=== PATIENT | male | born 2000 | race Asian ===

== ENCOUNTER → 2022-05-13 14:10 | Outpatient (CLI) | payer OTHER, MEDICAID, SELFPAY ==
[2022-05-13 19:32] LABS: BUN Creatinine Ratio 13.8 (6-22); Blood Urea Nitrogen 12 mg/dL (9-20); Calcium 9.1 mg/dL (8.4-10.2); Carbon Dioxide 26 mmol/L (22-32); Chloride 104 mmol/L (98-107); Estimated Glomerular Filt Rate > 60 mL/min (>60); Glucose 119 mg/dL (70-100); HEMOLYSIS < 15 (0-50); Potassium 3.6 mmol/L (3.4-5.1); Sodium 140 mmol/L (137-145)
[2022-05-13 20:06] LABS: Testosterone 386 ng/dL (132-813)
[2022-05-16 23:25] LABS: Estradiol, Sensitive 46.5 pg/mL (8.0-35.0)
== END ==
PROVIDERS: PCP Physician Assistant Medical; Visit Provider Physician Assistant
DX: F64.9 Gender identity disorder, unspecified (principal)
CPT/HCPCS: 80048; 82670; 84403

== ENCOUNTER → 2022-08-07 18:05 | Outpatient (CLI) | payer OTHER, MEDICAID, SELFPAY | PROVIDERS: PCP Physician Assistant; Visit Provider Physician Assistant Medical | DX: M25.50 Pain in unspecified joint (principal); R53.83 Other fatigue | CPT/HCPCS: 82948 ==

== ENCOUNTER → 2022-08-21 12:59 | Outpatient (CLI) | payer OTHER, MEDICAID, SELFPAY ==
[2022-08-21 19:38] LABS: Alanine Aminotransferase 13 IU/L (<35); Albumin 4.2 g/dL (3.5-5.0); Albumin Globulin Ratio 1.5 (1.0-2.8); Alkaline Phosphatase 55 U/L (38-126); Aspartate Aminotransferase 24 IU/L (14-36); BUN Creatinine Ratio 20.5 (6-22); Bilirubin Total 0.3 mg/dL (0.2-1.3); Blood Urea Nitrogen 16 mg/dL (7-17); C-Reactive Protein Quant < 0.5 mg/dL (<1.0); Calcium 8.9 mg/dL (8.4-10.2); Carbon Dioxide 27 mmol/L (22-32); Chloride 103 mmol/L (98-107); Estimated Glomerular Filt Rate > 60 mL/min (>60); Globulin 2.8 g/dL (1.7-4.1); Glucose 87 mg/dL (70-100); HEMOLYSIS < 15 (0-50); Potassium 3.9 mmol/L (3.4-5.1); Sodium 138 mmol/L (137-145)
[2022-08-21 19:49] LABS: Free T3, Triiodothyronine Free 4.69 pg/mL (2.77-5.27)
[2022-08-21 19:52] LABS: Add Manual Diff / Slide Review NO; Basophils Absolute Auto 0 /uL (0-100); Basophils Percent Auto 0.5 % (0-2); Eosinophils Absolute Auto 100 /uL (0-450); Eosinophils Percent Auto 1.8 % (2-4); Hematocrit 36.8 % (36-46); Hemoglobin 12.1 g/dL (12.0-16.0); Lymphocytes Absolute Auto 2700 /uL (1100-4500); Lymphocytes Percent Auto 38.9 % (25-40); Mean Corpuscular Hemoglobin 27.5 PG (26-34); Mean Corpuscular Volume 83.4 fL (80-100); Monocytes Absolute Auto 500 /uL (0-900); Monocytes Percent Auto 7.2 % (3-14); Neutrophils Absolute Auto 3600 /uL (1500-7000); Neutrophils Percent Auto 51.6 % (50-75); Platelet Count 193 X10^3/uL (150-400); Red Blood Cell Count 4.41 X10^6/uL (4.0-5.2); Red Cell Distribution Width 12.9 % (11.6-14.8)
[2022-08-21 20:03] LABS: TSH w/ Reflex to FT4 1.04 uIU/mL (0.47-4.68)
[2022-08-21 20:29] LABS: Erythrocyte Sedimentation Rate 7 MM/HR (0-20)
== END ==
PROVIDERS: PCP Physician Assistant; Visit Provider Physician Assistant Medical
DX: M25.50 Pain in unspecified joint (principal); R53.83 Other fatigue
CPT/HCPCS: 80053; 84443; 84481; 85025; 85651; 86140

== ENCOUNTER → 2022-10-31 14:34 | Outpatient (CLI) | payer OTHER, MEDICAID, SELFPAY ==
[2022-10-31 19:26] LABS: BUN Creatinine Ratio 9.6 (6-22); Blood Urea Nitrogen 10 mg/dL (7-17); Calcium 9.1 mg/dL (8.4-10.2); Carbon Dioxide 23 mmol/L (22-32); Chloride 104 mmol/L (98-107); Estimated Glomerular Filt Rate > 60 mL/min (>60); Glucose 116 mg/dL (70-100); HEMOLYSIS < 15 (0-50); Sodium 138 mmol/L (137-145)
[2022-10-31 19:27] LABS: Potassium 3.9 mmol/L (3.4-5.1)
[2022-10-31 19:56] LABS: Testosterone 362 ng/dL (5.71-77.0)
[2022-11-05 22:22] LABS: ANA Screen, IFA Negative (.); Albumin 3.8 g/dL (2.9-4.4); Alpha 1 Globulin 0.2 g/dL (0.0-0.4); Alpha 2 Globulin 0.7 g/dL (0.4-1.0); Beta 1 Globulin 0.9 g/dL (0.7-1.3); Protein, Total 6.7 g/dL (6.0-8.5)
[2022-11-14 11:17] LABS: Estradiol, Sensitive 55.6
== END ==
PROVIDERS: Family Medicine; PCP Physician Assistant; Visit Provider Nurse Practitioner Family
DX: F64.9 Gender identity disorder, unspecified (principal); Z79.890 Hormone replacement therapy; M25.50 Pain in unspecified joint; M79.10 Myalgia, unspecified site; R53.83 Other fatigue
CPT/HCPCS: 80048; 82670; 84155; 84165; 84403; 86038

== ENCOUNTER → 2022-12-04 14:30 | Outpatient (CLI) | payer OTHER, MEDICAID, SELFPAY ==
[2022-12-04 19:36] LABS: BUN Creatinine Ratio 12.3 (6-22); Blood Urea Nitrogen 10 mg/dL (7-17); Calcium 9.3 mg/dL (8.4-10.2); Carbon Dioxide 28 mmol/L (22-32); Chloride 100 mmol/L (98-107); Estimated Glomerular Filt Rate > 60 mL/min (>60); Glucose 88 mg/dL (70-100); HEMOLYSIS 18 (0-50); Potassium 4.2 mmol/L (3.4-5.1); Sodium 137 mmol/L (137-145)
[2022-12-04 20:04] LABS: Estradiol, Total 30.2 pg/mL
[2022-12-10 07:36] LABS: Percent Free Testosterone 3.55 % (0.50-2.80); Testosterone Free 30.97 ng/dL (0.10-0.85); Testosterone Total 872.4 ng/dL (10.0-55.0)
== END ==
PROVIDERS: PCP Physician Assistant; Visit Provider Family Medicine
DX: Z78.9 Other specified health status (principal); R79.89 Other specified abnormal findings of blood chemistry
CPT/HCPCS: 80048; 82670; 84402; 84403

== ENCOUNTER → 2022-12-26 12:48 | Outpatient (CLI) | payer OTHER, MEDICAID, SELFPAY ==
[2022-12-26 20:16] LABS: C-Reactive Protein Quant < 0.5 mg/dL (<1.0)
[2022-12-26 20:25] LABS: Erythrocyte Sedimentation Rate 11 MM/HR (0-20)
[2022-12-29 17:00] LABS: ANA Screen, IFA Negative (.)
== END ==
PROVIDERS: PCP Physician Assistant; Visit Provider Family Medicine
DX: M79.10 Myalgia, unspecified site (principal); R53.83 Other fatigue; M25.50 Pain in unspecified joint
CPT/HCPCS: 85651; 86038; 86140

== ENCOUNTER → 2023-02-08 15:13 | Outpatient (CLI) | payer OTHER, MEDICAID, SELFPAY ==
[2023-02-08 17:33] LABS: Urine N gonorrhoeae NOT DETECTED
[2023-02-08 17:44] LABS: Urine Chlamydia NOT DETECTED
== END ==
PROVIDERS: PCP Physician Assistant; Visit Provider Nurse Practitioner Family
DX: Z11.3 Encounter for screening for infections with a predominantly sexual mode of transmission (principal)
CPT/HCPCS: 87491; 87591

== ENCOUNTER → 2023-04-07 10:55 | Outpatient (CLI) | payer OTHER, MEDICAID, SELFPAY ==
[2023-04-07 19:52] LABS: BUN Creatinine Ratio 20.2 (6-22); Blood Urea Nitrogen 21 mg/dL (7-17); Calcium 10.4 mg/dL (8.4-10.2); Carbon Dioxide 28 mmol/L (22-32); Chloride 98 mmol/L (98-107); Estimated Glomerular Filt Rate > 60 mL/min (>60); Glucose 107 mg/dL (70-100); HEMOLYSIS < 15 (0-50); Potassium 4.1 mmol/L (3.4-5.1); Sodium 136 mmol/L (137-145)
[2023-04-07 20:00] LABS: Rheumatoid Factor < 8.6 IU/mL (<12.0)
[2023-04-07 20:26] LABS: Hepatitis B Surface Antigen NEGATIVE s/c (NEGATIVE)
== END ==
PROVIDERS: PCP Family Medicine; Visit Provider Family Medicine
DX: M79.10 Myalgia, unspecified site (principal); R53.83 Other fatigue; M25.50 Pain in unspecified joint; Z20.6 Contact with and (suspected) exposure to human immunodeficiency virus [HIV]
CPT/HCPCS: 80048; 86430; 87340

== ENCOUNTER → 2023-04-28 14:30 | Outpatient (CLI) | payer OTHER, MEDICAID, SELFPAY ==
[2023-04-28 19:33] LABS: BUN Creatinine Ratio 10.6 (6-22); Blood Urea Nitrogen 10 mg/dL (7-17); Carbon Dioxide 27 mmol/L (22-32); Chloride 102 mmol/L (98-107); Estimated Glomerular Filt Rate > 60 mL/min (>60); Glucose 91 mg/dL (70-100); HEMOLYSIS < 15 (0-50); Potassium 4.1 mmol/L (3.4-5.1); Sodium 138 mmol/L (137-145)
[2023-04-28 19:41] LABS: Hemoglobin A1C% w Est Avg Glu 5.6 % (4.0-6.0)
[2023-04-28 20:00] LABS: Estradiol, Total 184.7 pg/mL
[2023-04-28 20:03] LABS: Testosterone 379 ng/dL (5.71-77.0)
== END ==
PROVIDERS: PCP Family Medicine; Visit Provider Registered Nurse
DX: E34.9 Endocrine disorder, unspecified (principal); F64.9 Gender identity disorder, unspecified; Z13.1 Encounter for screening for diabetes mellitus
CPT/HCPCS: 80048; 82670; 83036; 84403

== ENCOUNTER → 2023-09-15 07:20 | Outpatient (CLI) | payer OTHER, SELFPAY ==
--- NOTE | 2023-09-15 07:21 | DI.ECHO.S_ITS ---
[facility]---------+ [facility] +---------+ : : [address] : [place] [address] : : : : [id number] : : : : Phone: [phone]---------+ Echocardiogram Report + + :Name: JAMESON HARTLEY Study Date: 09/15/2023 Height: 70 in : :[facility] ReadingLocation: Weight: 140 lb : : Gender: Female BSA: 1.8 m2 : :: 2000 Age: 23 yrs BP: 108/74 mmHg: :Reason For Study: SYNCOPE : :Ordering Physician: DEANN, : :TARIK Performed By: Edna Collier : :Referring: TARIK ZACARIAS : + + Interpretation Summary Normal left ventricle size with low normal systolic function. The ejection fraction is estimated to be 50-55%. No valvular abnormality. Procedure: A two-dimensional transthoracic echocardiogram with color flow and Doppler was performed. The study quality was technically adequate. There is no prior echocardiogram noted for this patient. The patient was in sinus rhythm with heart rates between 66-85 bpm during the exam. Left Ventricle: The left ventricle is normal in size and wall thickness. Left ventricular systolic function is low normal. The ejection fraction is estimated to be 50-55%. There are no focal wall motion abnormalities. Diastolic parameters suggest probable normal left ventricular diastolic function and normal filling pressures. Right Ventricle: The right ventricle is normal in size and function. Atria: The left atrial size is normal. Right atrial size is normal. There is no Doppler evidence for an interatrial shunt. Mitral Valve: The mitral valve is normal in structure and function. There is trace mitral regurgitation. Aortic Valve: The aortic valve is trileaflet. The aortic valve opens well. There is no aortic valve stenosis. No aortic regurgitation is present. Tricuspid Valve: The tricuspid valve is normal in structure and function. There is trace tricuspid regurgitation. The right ventricular systolic pressure is estimated to be at least 19 mmHg based on an estimated right atrial pressure of 3 mm Hg. Pulmonic Valve: The pulmonic valve leaflets are thin and pliable; valve motion is normal. There is trace pulmonic regurgitation. Great Vessels: The aortic root is normal size. The dimensions of the ascending aorta are normal. The IVC is of normal diameter and collapses greater than 50% with a sniff. This suggests a low right atrial pressure of 3 mm Hg. Pericardium/ Pleura There is no pericardial effusion. There is no pleural effusion. MMode/2D Measurements & Calculations LVIDd: 4.4 cm LVOT diam: 2.0 cm LVIDs: 3.3 cm Ao root diam: 2.8 cm FS: 25.3 % asc Aorta Diam: 2.5 cm EPSS: 0.85 cm Ao Arch Diam (Prox Trans): 2.4 cm IVSd: 0.67 cm LVPWd: 0.67 cm LV sethi. diameter/BSA (cm/m^2): 2.4 LV sys. diameter/BSA (cm/m^2): 1.8 LA A2 area: 9.8 cm2 RA long axis: 3.6 cm LA A4 area: 11.4 cm2 RA area: 9.4 cm2 LA length (vol): 3.7 cm RA vol: 20.6 ml LA vol: 25.6 ml RA : 11.5 ml/m2 LA vol index: 14.3 ml/m2 IVC diam: 1.1 cm RVD1 (basal): 2.7 cm RVD2 (mid): 2.6 cm TAPSE: 1.7 cm Doppler Measurements & Calculations Ao V2 max: 101.5 cm/sec LVOT Max Parvez: 63.2 cm/sec Ao V2 mean: 66.4 cm/sec LV V1 max P.6 mmHg Ao max P.1 mmHg LV V1 VTI: 11.3 cm Ao mean P.0 mmHg DENITA(I,D): 2.0 cm2 Ao V2 VTI: 16.9 cm DENITA(V,D): 1.9 cm2 sev ratio: 0.67 DENITA indexed to BSA (cm^2/m^2): 1.1 MV E max parvez: 76.1 cm/sec TR max parvez: 199.4 cm/sec MV A max parvez: 45.3 cm/sec TR max P.9 mmHg MV E/A: 1.7 PA V2 max: 77.5 cm/sec Med Peak E' Parvez: 14.3 cm/sec PA V2 mean: 56.2 cm/sec E/E' med: 5.3 PA mean P.4 mmHg Lat Peak E' Parvez: 15.4 cm/sec PA pr(Accel): 19.1 mmHg E/E' lat: 4.9 E/e' average: 5.1 MV dec time: 0.13 sec SV(LVOT): 34.1 ml Electronically signed by: Edna Shaikh on Reading Physician:09/15/2023 01:36 PM
== END ==
PROVIDERS: PCP Family Medicine; Referring Provider Internal Medicine Cardiovascular Disease; Visit Provider Internal Medicine Cardiovascular Disease
DX: R55 Syncope and collapse (principal)
CPT/HCPCS: 93306

== ENCOUNTER → 2023-10-02 10:53 | Outpatient (CLI) | payer OTHER, MEDICAID, SELFPAY ==
[2023-10-02 19:06] LABS: Alanine Aminotransferase 10 IU/L (<35); Albumin 4.8 g/dL (3.5-5.0); Albumin Globulin Ratio 1.7 (1.0-2.8); Alkaline Phosphatase 56 U/L (38-126); Aspartate Aminotransferase 22 IU/L (14-36); BUN Creatinine Ratio 7.8 (6-22); Bilirubin Total 0.7 mg/dL (0.2-1.3); Blood Urea Nitrogen 6 mg/dL (7-17); Carbon Dioxide 26 mmol/L (22-32); Chloride 105 mmol/L (98-107); Estimated Glomerular Filt Rate > 60 mL/min (>60); Globulin 2.9 g/dL (1.7-4.1); Glucose 87 mg/dL (70-100); HEMOLYSIS < 15 (0-50); Potassium 3.8 mmol/L (3.4-5.1); Sodium 138 mmol/L (137-145); Total Protein 7.7 g/dL (6.3-8.2)
[2023-10-02 19:08] LABS: Add Manual Diff / Slide Review NO; Basophils Absolute Auto 0 /uL (0-100); Basophils Percent Auto 0.4 % (0-2); Eosinophils Absolute Auto 200 /uL (0-450); Eosinophils Percent Auto 3.5 % (2-4); Hematocrit 37.9 % (36-46); Hemoglobin 12.7 g/dL (12.0-16.0); Lymphocytes Absolute Auto 2200 /uL (1100-4500); Lymphocytes Percent Auto 34.6 % (25-40); Mean Corpuscular HGB Conc 33.4 % (30-36); Mean Corpuscular Hemoglobin 28.8 PG (26-34); Mean Corpuscular Volume 86.2 fL (80-100); Monocytes Absolute Auto 400 /uL (0-900); Monocytes Percent Auto 6.3 % (3-14); Neutrophils Absolute Auto 3600 /uL (1500-7000); Neutrophils Percent Auto 55.2 % (50-75); Platelet Count 196 X10^3/uL (150-400); Red Cell Distribution Width 12.5 % (11.6-14.8); White Blood Cell Count 6.4 X10^3/uL (4.5-11.0)
[2023-10-02 19:39] LABS: TSH w/ Reflex to FT4 1.74 uIU/mL (0.47-4.68)
[2023-10-02 19:50] LABS: HIV 1 & 2 Ab/Ag 4th Gen Combo NEGATIVE (NEGATIVE)
[2023-10-03 04:55] LABS: RPR Screen Non Reactive (Non Reactive)
[2023-10-03 05:26] LABS: HSV 2 IGG AB < 0.91 index (0.00-0.90); HSV1IGG < 0.91 index (0.00-0.90)
[2023-10-07 10:57] LABS: Testosterone Free 4.52 ng/dL (0.10-0.85); Testosterone Total 145.8 ng/dL (10.0-55.0)
== END ==
PROVIDERS: PCP Family Medicine; Visit Provider Family Medicine
DX: Z11.3 Encounter for screening for infections with a predominantly sexual mode of transmission (principal); R79.89 Other specified abnormal findings of blood chemistry; G90.A Postural orthostatic tachycardia syndrome [POTS]; F32.9 Major depressive disorder, single episode, unspecified; R53.83 Other fatigue; Z78.9 Other specified health status; Z79.899 Other long term (current) drug therapy
CPT/HCPCS: 80053; 84402; 84403; 84443; 85025; 86592; 86695; 86696; 87389

== ENCOUNTER → 2023-10-10 10:50 | Outpatient (CLI) | payer OTHER, MEDICAID, SELFPAY ==
[2023-10-10 19:41] LABS: Urine N gonorrhoeae NOT DETECTED
[2023-10-10 20:06] LABS: Urine Chlamydia NOT DETECTED
== END ==
PROVIDERS: PCP Family Medicine; Visit Provider Family Medicine
DX: Z11.3 Encounter for screening for infections with a predominantly sexual mode of transmission (principal)
CPT/HCPCS: 87491; 87591

== ENCOUNTER → 2024-01-14 08:58 | Outpatient (CLI) | payer OTHER, MEDICAID, SELFPAY | PROVIDERS: PCP Family Medicine; Visit Provider Family Medicine | DX: R30.0 Dysuria (principal); Z78.9 Other specified health status | CPT/HCPCS: 87086 ==

== ENCOUNTER → 2024-06-01 10:57 | Outpatient (CLI) | payer OTHER, SELFPAY ==
[2024-06-01 21:34] LABS: Urine N gonorrhoeae NOT DETECTED
[2024-06-01 21:37] LABS: Urine Chlamydia NOT DETECTED
[2024-06-03 05:13] LABS: RPR Screen Non Reactive (Non Reactive)
[2024-06-03 15:49] LABS: HIV 1 & 2 Ab/Ag 4th Gen Combo NEGATIVE (NEGATIVE)
[2024-06-03 19:16] LABS: Alanine Aminotransferase 14 IU/L (<35); Albumin 4.3 g/dL (3.5-5.0); Albumin Globulin Ratio 1.6 (1.0-2.8); Alkaline Phosphatase 54 U/L (38-126); Aspartate Aminotransferase 27 IU/L (14-36); Bilirubin Total 0.4 mg/dL (0.2-1.3); Blood Urea Nitrogen 7 mg/dL (7-17); Calcium 9.6 mg/dL (8.4-10.2); Carbon Dioxide 24 mmol/L (22-32); Chloride 109 mmol/L (98-107); Estimated Glomerular Filt Rate > 60 mL/min (>60); Globulin 2.7 g/dL (1.7-4.1); Glucose 78 mg/dL (70-100); HEMOLYSIS < 15 (0-50); Sodium 139 mmol/L (137-145)
[2024-06-03 19:46] LABS: TSH w/ Reflex to FT4 2.18 uIU/mL (0.47-4.68)
[2024-06-07 07:36] LABS: Percent Free Testosterone 1.61 % (0.50-2.80); Testosterone Free 7.06 ng/dL (0.10-0.85); Testosterone Total 438.2 ng/dL (10.0-55.0)
[2024-06-10 07:11] LABS: Estradiol, Sensitive 63.4 pg/mL (.)
== END ==
PROVIDERS: PCP Family Medicine; Visit Provider Family Medicine
DX: Z11.3 Encounter for screening for infections with a predominantly sexual mode of transmission (principal); R30.0 Dysuria; F32.9 Major depressive disorder, single episode, unspecified; R79.89 Other specified abnormal findings of blood chemistry; R53.83 Other fatigue; Z78.9 Other specified health status
CPT/HCPCS: 80053; 82670; 84402; 84403; 84443; 86592; 87389; 87491; 87591